=== PATIENT | male | born 1995 | race Two or more races ===

== ENCOUNTER 2019-05-16 17:52 | Emergency (ER) | payer OTHER ==
[~2019-05-16] VITALS: Ht 175.3 cm; Wt 108.9 kg
[2019-05-16 18:06] VITALS: BP 134/76
== END 2019-05-16 22:54 | disposition left against medical advice (07) ==
LOC: ER 17:56
DX: M79.605 Pain in left leg (principal); Z53.21 Procedure and treatment not carried out due to patient leaving prior to being seen by health care provider
CPT/HCPCS: 73590